=== PATIENT | male | born 1970 | race Caucasian/White ===

== ENCOUNTER 2018-08-11 12:57 | Observation (INO) ==
[2018-08-11 15:56] LABS: Basophils # 0.1 10*3/uL (0.0-0.2); Basophils % 0.5 % (0.0-0.8); Eosinophils # 0.3 10*3/uL (0.0-0.87); Eosinophils % 2.7 % (0.00-10.9); Hematocrit 46.7 VOL% (42.0-52.0); Hemoglobin 15.4 GM/DL (14.0-18.0); Immature Granulocytes % 0.7 %; Immature Granulocytes Absolute 0.09 #; Lymphocytes # 2.5 10*3/uL (1.4-4.0); Lymphocytes % 20.6 % (21.2-54.2); Mean Corpuscular Hemoglobin 32 PG (27-34); Mean Corpuscular Volume 95.7 FL (87-102); Mean Platelet Volume 11.8 FL (9.6-12.0); Monocytes # 1.1 10*3/uL (0.11-0.8); Monocytes % 8.8 % (1.7-12.7); Neutrophils # 8.1 10*3/uL (1.4-7.4); Neutrophils % 66.7 % (38.7-73.9); Platelet Count 239 T/CUMM (130-400); Red Blood Count 4.88 MC/CUMM (3.8-5.5); Red Cell Distribution Width 13.5 % (9.3-17.3); White Blood Count 12.1 T/CUMM (4-12)
[2018-08-11 16:10] LABS: PT Patient Result 10.6 SECS; Partial Thromboplastin Time 31.7 SECS (0-40)
[2018-08-11 16:11] LABS: Alanine Aminotransferase 36 U/L (16-61); Albumin 3.9 G/DL (3.4-5.0); Alkaline Phosphatase 93 U/L (45-117); Aspartate Amino Transferase 29 U/L (0-37); Bilirubin,Total < 0.39 MG/DL (0.2-1.0); Blood Urea Nitrogen 17 MG/DL (7-18); CKMB % 1.7 %; Calcium 8.8 MG/DL (8.5-10.1); Glucose 88 MG/DL (74-106); Potassium 3.8 MMOL/L (3.5-5.1); Sodium 136 MMOL/L (136-145); Total Protein 8.2 G/DL (6.4-8.3); Troponin I < 0.015 NG/ML (0.00-0.045)
[2018-08-11] MEDS ORDERED: ONDANSETRON 4 MG/2 ML VIAL IV PRN (18:55)
[2018-08-11] MEDS ORDERED: MORPHINE 4 MG/1 ML VIAL IV PRN (18:55)
[2018-08-11] MEDS ORDERED: ACETAMINOPHEN 325 MG TABLET PO PRN (18:55)
[2018-08-11] MEDS ORDERED: DOCUSATE SODIUM 100 MG CAPSULE PO PRN (18:55)
[2018-08-11] MEDS ORDERED: ZALEPLON 5 MG CAPSULE PO PRN (18:55)
[2018-08-11 20:23] LABS: CKMB % 1.8 %; Troponin I < 0.015 NG/ML (0.00-0.045)
[2018-08-11] MEDS ORDERED: ENOXAPARIN 40 MG/0.4 ML SYRINGE SUBCUT SCH (21:00)
[2018-08-11] MEDS: CARVEDILOL 3.125 MG TABLET PO SCH (22:14)
[2018-08-12] MEDS ORDERED: PNEUMOCOCCAL VACCINE (13 VALENT) 0.5 ML SYRINGE IM ONE (00:07)
[2018-08-12 03:24] LABS: Apearance,Urine CLEAR (Clear); Bilirubin,Urine Negative (Negative); Blood, Urine Negative (Negative); Glucose,Urine (UA) Negative (Negative); Ketones,Urine Negative (Negative); Mucus,Urine Occasional /LPF (Occasional); Nitrite,Urine Negative (Negative); Protein,Urine Negative; RBC,Urine <1 /HPF (0-4); Urine Color Yellow (Yellow); Urine Specific Gravity > 1.060 (1.001-1.035); Urine Urobilinogen < 2.0 EU/DL (0.2-1.0); WBC,Urine 2 /HPF (0-6)
[2018-08-12 03:47] LABS: Basophils # 0.1 10*3/uL (0.0-0.2); Basophils % 0.4 % (0.0-0.8); Eosinophils # 0.5 10*3/uL (0.0-0.87); Eosinophils % 3.7 % (0.00-10.9); Hematocrit 44.2 VOL% (42.0-52.0); Hemoglobin 14.8 GM/DL (14.0-18.0); Immature Granulocytes Absolute 0.13 #; Lymphocytes # 3.6 10*3/uL (1.4-4.0); Lymphocytes % 26.9 % (21.2-54.2); Mean Corpuscular HGB Conc 33.5 GM/DL (32-36); Mean Corpuscular Hemoglobin 32 PG (27-34); Mean Corpuscular Volume 94.8 FL (87-102); Mean Platelet Volume 12.8 FL (9.6-12.0); Monocytes # 1.6 10*3/uL (0.11-0.8); Monocytes % 11.7 % (1.7-12.7); Neutrophils # 7.6 10*3/uL (1.4-7.4); Neutrophils % 56.3 % (38.7-73.9); Platelet Count 228 T/CUMM (130-400); Red Blood Count 4.66 MC/CUMM (3.8-5.5); Red Cell Distribution Width 13.5 % (9.3-17.3); White Blood Count 13.5 T/CUMM (4-12)
[2018-08-12 04:14] LABS: Troponin I < 0.015 NG/ML (0.00-0.045)
[2018-08-12 04:19] LABS: Calcium 8.3 MG/DL (8.5-10.1); Osmolality,Calculated 279.5 MOS/KG (273-304); Potassium 3.4 MMOL/L (3.5-5.1); Thyroid Stimulating Hormone 2.03 uIU/ml (0.358-3.74)
[2018-08-12 04:29] LABS: Risk Ratio 6.03; VLDL CHOLESTEROL 81.8 MG/DL
[2018-08-12] MEDS ORDERED: ASPIRIN EC 325 MG TABLET PO SCH (09:00)
[2018-08-12] MEDS ORDERED: buPROPion SR 150 MG TABLET PO SCH (09:00)
[2018-08-12] MEDS ORDERED: NICOTINE 21 MG/24 HR PATCH TRANSDERM SCH (09:00)
[2018-08-12] MEDS: CARVEDILOL 3.125 MG TABLET PO SCH (09:38)
[2018-08-12 12:29] VITALS: BP 122/86
[2018-08-12] MEDS ORDERED: ALBUTEROL/IPRATROPIUM 3 ML NEB RESP TX SCH (13:00)
== END 2018-08-12 15:04 | disposition home or self-care (01) ==
LOC: N.ED 12:57 → N.TELES 12:57
PROVIDERS: ADMIT Hospitalist; ATTEND Hospitalist

== ENCOUNTER 2021-05-29 16:00 | Inpatient (IN) ==
[2021-05-29] MEDS ORDERED: SODIUM CHLORIDE 0.9% 1,000 ML IV STA (18:49)
[2021-05-29] MEDS ORDERED: ONDANSETRON 4 MG/2 ML VIAL IV ONE (18:49)
[2021-05-29 19:54] LABS: Basophils % 0.4 % (0.0-0.8); Eosinophils # 0.1 10*3/uL (0.0-0.87); Eosinophils % 1.3 % (0.00-10.9); Hemoglobin 16.5 GM/DL (14.0-18.0); Immature Granulocytes % 0.6 %; Immature Granulocytes Absolute 0.05 #; Lymphocytes # 1.3 10*3/uL (1.4-4.0); Lymphocytes % 16.6 % (21.2-54.2); Mean Corpuscular HGB Conc 33.7 GM/DL (32-36); Mean Corpuscular Volume 92.8 FL (87-102); Mean Platelet Volume 12.3 FL (9.6-12.0); Monocytes % 10.1 % (1.7-12.7); Platelet Count 188 T/CUMM (130-400); Red Blood Count 5.28 MC/CUMM (3.8-5.5); Red Cell Distribution Width 14.2 % (9.3-17.3); White Blood Count 7.7 T/CUMM (4-12)
[2021-05-29 20:23] LABS: Albumin 3.2 G/DL (3.4-5.0); Bilirubin,Total 0.9 MG/DL (0.20-1.00); Calcium 8.3 MG/DL (8.5-10.1); Osmolality,Calculated 263.7 MOS/KG (273-304); Potassium 3.2 MMOL/L (3.5-5.1); Total Protein 7.7 G/DL (6.4-8.2)
[2021-05-29 21:26] LABS: Hepatitis B Core IgM Quant 0.11 Index; Hepatitis B Surface Ag Quant < 0.10 Index; Hepatitis B Surface Ag Result Non-Reactive (NonReactive); Hepatitis C Virus Ab Quant 0.13 Index; Hepatitis C Virus Ab Result Non-Reactive (NonReactive)
[2021-05-29] MEDS ORDERED: POTASSIUM CHLORIDE 20 MEQ/15 ML UDCUP PO ONE (22:18)
[2021-05-29] MEDS ORDERED: POTASSIUM BICARB EFFERVESCENT 20 MEQ TAB.EFF PO ONE (22:30)
[2021-05-29] MEDS ORDERED: DEXTROSE 50% 25 GM/50 ML VIAL IV PRN (23:11)
[2021-05-29] MEDS ORDERED: ONDANSETRON 4 MG/2 ML VIAL IV PRN (23:11)
[2021-05-29] MEDS ORDERED: GLUCAGON 1 MG VIAL IM PRN (23:11)
[2021-05-30] MEDS ORDERED: LORazepam 2 MG/1 ML VIAL IV PRN (00:47)
[2021-05-30] MEDS ORDERED: MAGNESIUM SULF RIDER 2 GM/50 ML PREMIX IV PRN (00:48)
[2021-05-30] MEDS ORDERED: MAGNESIUM SULF RIDER 4 GM/100 ML PREMIX IV PRN (00:48)
[2021-05-30] MEDS ORDERED: POTASSIUM CHLORIDE 20 MEQ TABLET PO PRN (00:48)
[2021-05-30] MEDS ORDERED: PANTOPRAZOLE 40 MG VIAL IV ONE (01:30)
[2021-05-30] MEDS: SODIUM CHLORIDE 0.9% 1,000 ML IV SCH ×2 (02:08→09:40)
[2021-05-30] MEDS ORDERED: NICOTINE 21 MG/24 HR PATCH TRANSDERM PRN (02:38)
[2021-05-30 06:21] LABS: Basophils % 0.4 % (0.0-0.8); Eosinophils # 0.1 10*3/uL (0.0-0.87); Eosinophils % 1.7 % (0.00-10.9); Hematocrit 46.2 VOL% (42.0-52.0); Hemoglobin 15.2 GM/DL (14.0-18.0); Immature Granulocytes % 0.7 %; Immature Granulocytes Absolute 0.05 #; Lymphocytes # 1.3 10*3/uL (1.4-4.0); Lymphocytes % 17.9 % (21.2-54.2); Mean Corpuscular HGB Conc 32.9 GM/DL (32-36); Mean Corpuscular Volume 92.8 FL (87-102); Mean Platelet Volume 12.3 FL (9.6-12.0); Monocytes % 15.1 % (1.7-12.7); Neutrophils % 64.2 % (38.7-73.9); Platelet Count 169 T/CUMM (130-400); Red Blood Count 4.98 MC/CUMM (3.8-5.5); Red Cell Distribution Width 14.4 % (9.3-17.3); White Blood Count 7.5 T/CUMM (4-12)
[2021-05-30 07:00] LABS: Albumin 2.6 G/DL (3.4-5.0); Bilirubin,Total 1.6 MG/DL (0.20-1.00); Calcium 7.9 MG/DL (8.5-10.1); Osmolality,Calculated 267.2 MOS/KG (273-304); Potassium 3.3 MMOL/L (3.5-5.1); Total Protein 6.7 G/DL (6.4-8.2)
[2021-05-30 07:05] LABS: Eosinophils 1 % (0-10); Lymphocytes 12 % (20-55); Platelet Estimate Normal; Segmented Neutrophils 68 % (50-85); Total Cells Counted 100
[2021-05-30 12:11] VITALS: BP 117/72
[2021-05-31] MEDS ORDERED: POTASSIUM CHLORIDE 20 MEQ TABLET PO SCH (09:00)
== END 2021-05-30 14:42 | disposition home or self-care (01) | DRG 442 ==
LOC: N.ED 16:00 → N.EDINP 23:10 → SUATTDRO 23:10 → N.TELES 23:52
PROVIDERS: ADMIT Hospitalist; ATTEND Internal Medicine Geriatric Medicine

== ENCOUNTER 2021-06-03 07:54 | Inpatient (IN) ==
[2021-06-03] MEDS ORDERED: ONDANSETRON 4 MG/2 ML VIAL IV STA (08:21)
[2021-06-03] MEDS ORDERED: SODIUM CHLORIDE 0.9% 1,000 ML IV STA (08:21)
[2021-06-03 08:29] LABS: Basophils % 0.6 % (0.0-0.8); Eosinophils # 0.1 10*3/uL (0.0-0.87); Eosinophils % 1.8 % (0.00-10.9); Hematocrit 47.2 VOL% (42.0-52.0); Hemoglobin 16.2 GM/DL (14.0-18.0); Immature Granulocytes % 1.1 %; Immature Granulocytes Absolute 0.08 #; Lymphocytes # 1.7 10*3/uL (1.4-4.0); Lymphocytes % 23.3 % (21.2-54.2); Mean Corpuscular HGB Conc 34.3 GM/DL (32-36); Mean Corpuscular Volume 91.8 FL (87-102); Mean Platelet Volume 12.5 FL (9.6-12.0); Monocytes % 12.3 % (1.7-12.7); Neutrophils % 60.9 % (38.7-73.9); Platelet Count 198 T/CUMM (130-400); Red Blood Count 5.14 MC/CUMM (3.8-5.5); White Blood Count 7.3 T/CUMM (4-12)
[2021-06-03 08:37] LABS: INR 1.4; PT Patient Result 14.9 SECS (10.5-12.0); Partial Thromboplastin Time 29.4 SECS (23.9-33.8)
[2021-06-03 08:49] LABS: Band Neutrophils 1 % (0-10); Lymphocytes 31 % (20-55); Platelet Estimate Adequate; Segmented Neutrophils 57 % (50-85); Total Cells Counted 100
[2021-06-03 09:10] LABS: Albumin 2.4 G/DL (3.4-5.0); Bilirubin,Total 7.1 MG/DL (0.20-1.00); Osmolality,Calculated 267.2 MOS/KG (273-304); Potassium 3.5 MMOL/L (3.5-5.1); Total Protein 6.9 G/DL (6.4-8.2)
[2021-06-03] MEDS ORDERED: GLUCAGON 1 MG VIAL IM PRN (11:40)
[2021-06-03] MEDS ORDERED: DEXTROSE 50% 25 GM/50 ML VIAL IV PRN (11:40)
[2021-06-03] MEDS ORDERED: hydrALAZINE 20 MG/1 ML VIAL IV PRN (11:40)
[2021-06-03] MEDS ORDERED: ONDANSETRON 4 MG/2 ML VIAL IV PRN (11:40)
[2021-06-03 12:03] LABS: Hepatitis B Core IgM Quant 0.09 Index; Hepatitis B Surface Ag Quant < 0.10 Index; Hepatitis B Surface Ag Result Non-Reactive (NonReactive); Hepatitis C Virus Ab Quant 0.14 Index; Hepatitis C Virus Ab Result Non-Reactive (NonReactive)
[2021-06-03] MEDS: PANTOPRAZOLE 40 MG VIAL IV SCH (14:42)
[2021-06-03] MEDS: SODIUM CHLORIDE 0.9% 1,000 ML IV SCH (18:48)
[2021-06-03] MEDS: NICOTINE 21 MG/24 HR PATCH TRANSDERM SCH (18:48)
[2021-06-03 22:57] LABS: Blood, Urine Small mg/dL (Negative); Glucose,Urine (UA) Negative (Negative); Ketones,Urine Negative (Negative); Mucus,Urine Occasional /LPF (Occasional); Nitrite,Urine Negative (Negative); Protein,Urine Negative; RBC,Urine <1 /HPF (0-4); Urine Appearance CLEAR (Clear); Urine Color Amber (Yellow); Urine Specific Gravity 1.018 (1.001-1.035)
[2021-06-03 22:58] LABS: Bilirubin,Urine Moderate mg/dL (Negative)
[2021-06-03 23:27] LABS: Barbiturates Screen,Urine Negative (Negative); Benzodiazepines Screen,Urine Negative (Negative); Cannabinoid Screen,Urine Negative (Negative); Opiate Screen,Urine Negative (Negative); Phencyclidine Screen,Urine Negative (Negative)
[2021-06-04 04:45] LABS: Basophils % 0.3 % (0.0-0.8); Eosinophils # 0.1 10*3/uL (0.0-0.87); Hematocrit 44.8 VOL% (42.0-52.0); Hemoglobin 14.9 GM/DL (14.0-18.0); Immature Granulocytes % 1.1 %; Immature Granulocytes Absolute 0.09 #; Lymphocytes % 25.1 % (21.2-54.2); Mean Corpuscular HGB Conc 33.3 GM/DL (32-36); Mean Corpuscular Volume 92.9 FL (87-102); Mean Platelet Volume 11.7 FL (9.6-12.0); Monocytes % 15.2 % (1.7-12.7); Neutrophils % 57.3 % (38.7-73.9); Platelet Count 235 T/CUMM (130-400); Red Blood Count 4.82 MC/CUMM (3.8-5.5); Red Cell Distribution Width 15.3 % (9.3-17.3); White Blood Count 7.9 T/CUMM (4-12)
[2021-06-04] MEDS: SODIUM CHLORIDE 0.9% 1,000 ML IV SCH ×3 (04:57→21:20)
[2021-06-04 05:19] LABS: Lymphocytes 24 % (20-55); Platelet Estimate Adequate; Segmented Neutrophils 63 % (50-85); Total Cells Counted 100
[2021-06-04 05:29] LABS: Albumin 2.2 G/DL (3.4-5.0); Bilirubin,Total 7.7 MG/DL (0.20-1.00); Calcium 7.5 MG/DL (8.5-10.1); Osmolality,Calculated 267.1 MOS/KG (273-304); Potassium 3.7 MMOL/L (3.5-5.1); Total Protein 6.4 G/DL (6.4-8.2)
[2021-06-04] MEDS ORDERED: MAGNESIUM SULF RIDER 2 GM/50 ML PREMIX IV ONE (08:07)
[2021-06-04] MEDS ORDERED: NICOTINE 21 MG/24 HR PATCH TRANSDERM SCH (09:00)
[2021-06-04] MEDS: NICOTINE 21 MG/24 HR PATCH TRANSDERM SCH (09:09)
[2021-06-04] MEDS: PANTOPRAZOLE 40 MG VIAL IV SCH (09:09)
[2021-06-04 13:31] LABS: Hepatitis B Surface Ag Quant < 0.10 Index; Hepatitis B Surface Ag Result Non-Reactive (NonReactive)
[2021-06-04] MEDS ORDERED: IBUPROFEN 800 MG TABLET PO ONE (17:18)
[2021-06-05 06:18] LABS: Basophils % 0.6 % (0.0-0.8); Eosinophils # 0.2 10*3/uL (0.0-0.87); Eosinophils % 2.3 % (0.00-10.9); Hematocrit 45.6 VOL% (42.0-52.0); Hemoglobin 15.1 GM/DL (14.0-18.0); Immature Granulocytes % 1.3 %; Immature Granulocytes Absolute 0.09 #; Lymphocytes # 2.1 10*3/uL (1.4-4.0); Lymphocytes % 30.1 % (21.2-54.2); Mean Corpuscular HGB Conc 33.1 GM/DL (32-36); Mean Corpuscular Volume 93.1 FL (87-102); Mean Platelet Volume 11.9 FL (9.6-12.0); Monocytes % 16.4 % (1.7-12.7); Neutrophils % 49.3 % (38.7-73.9); Platelet Count 231 T/CUMM (130-400); Red Cell Distribution Width 15.8 % (9.3-17.3)
[2021-06-05 06:45] LABS: Albumin 2.3 G/DL (3.4-5.0); Bilirubin,Total 8.8 MG/DL (0.20-1.00); Calcium 7.8 MG/DL (8.5-10.1); Potassium 3.6 MMOL/L (3.5-5.1); Total Protein 6.4 G/DL (6.4-8.2)
[2021-06-05] MEDS: SODIUM CHLORIDE 0.9% 1,000 ML IV SCH ×2 (07:50→18:00)
[2021-06-05] MEDS: PANTOPRAZOLE 40 MG TABLET PO SCH (08:34)
[2021-06-05] MEDS: NICOTINE 21 MG/24 HR PATCH TRANSDERM SCH (08:37)
[2021-06-05 09:58] LABS: Eosinophils 2 % (0-10); Lymphocytes 13 % (20-55); Segmented Neutrophils 62 % (50-85); Total Cells Counted 100
[2021-06-05 09:59] LABS: Platelet Estimate Normal; Target Cells 1+
[2021-06-06] MEDS: SODIUM CHLORIDE 0.9% 1,000 ML IV SCH ×2 (04:14→16:57)
[2021-06-06 07:17] LABS: Basophils # 0.1 10*3/uL (0.0-0.2); Basophils % 0.6 % (0.0-0.8); Eosinophils # 0.2 10*3/uL (0.0-0.87); Eosinophils % 1.9 % (0.00-10.9); Hematocrit 42.9 VOL% (42.0-52.0); Hemoglobin 14.3 GM/DL (14.0-18.0); Immature Granulocytes % 0.8 %; Immature Granulocytes Absolute 0.08 #; Lymphocytes # 3.4 10*3/uL (1.4-4.0); Mean Corpuscular HGB Conc 33.3 GM/DL (32-36); Mean Corpuscular Volume 92.9 FL (87-102); Mean Platelet Volume 11.9 FL (9.6-12.0); Monocytes % 12.8 % (1.7-12.7); Neutrophils % 47.9 % (38.7-73.9); Platelet Count 253 T/CUMM (130-400); Red Blood Count 4.62 MC/CUMM (3.8-5.5); Red Cell Distribution Width 15.9 % (9.3-17.3); White Blood Count 9.6 T/CUMM (4-12)
[2021-06-06 07:47] LABS: Albumin 2.1 G/DL (3.4-5.0); Bilirubin,Direct 7.37 MG/DL (0.0-0.20); Bilirubin,Total 8.8 MG/DL (0.20-1.00); Calcium 7.7 MG/DL (8.5-10.1); Osmolality,Calculated 266.1 MOS/KG (273-304); Potassium 3.8 MMOL/L (3.5-5.1); Total Protein 6.3 G/DL (6.4-8.2)
[2021-06-06] MEDS ORDERED: MAGNESIUM SULF RIDER 2 GM/50 ML PREMIX IV ONE (08:35)
[2021-06-06] MEDS: PANTOPRAZOLE 40 MG TABLET PO SCH (09:01)
[2021-06-06] MEDS: NICOTINE 21 MG/24 HR PATCH TRANSDERM SCH (09:01)
[2021-06-06 11:27] LABS: Band Neutrophils 2 % (0-10); Eosinophils 2 % (0-10); Lymphocytes 11 % (20-55); Segmented Neutrophils 67 % (50-85); Total Cells Counted 100
[2021-06-06 11:28] LABS: Platelet Estimate Normal
[2021-06-07] MEDS: SODIUM CHLORIDE 0.9% 1,000 ML IV SCH ×3 (01:10→09:15)
[2021-06-07 06:25] LABS: Basophils # 0.1 10*3/uL (0.0-0.2); Basophils % 0.5 % (0.0-0.8); Eosinophils # 0.2 10*3/uL (0.0-0.87); Eosinophils % 1.8 % (0.00-10.9); Hematocrit 43.1 VOL% (42.0-52.0); Hemoglobin 14.3 GM/DL (14.0-18.0); Immature Granulocytes % 0.9 %; Immature Granulocytes Absolute 0.09 #; Lymphocytes # 3.9 10*3/uL (1.4-4.0); Lymphocytes % 40.5 % (21.2-54.2); Mean Corpuscular HGB Conc 33.2 GM/DL (32-36); Mean Corpuscular Volume 92.9 FL (87-102); Mean Platelet Volume 12.5 FL (9.6-12.0); Monocytes % 13.5 % (1.7-12.7); Neutrophils % 42.8 % (38.7-73.9); Platelet Count 273 T/CUMM (130-400); Red Blood Count 4.64 MC/CUMM (3.8-5.5); Red Cell Distribution Width 16.2 % (9.3-17.3); White Blood Count 9.6 T/CUMM (4-12)
[2021-06-07 06:54] LABS: Lymphocytes 22 % (20-55); Platelet Estimate Normal; Segmented Neutrophils 52 % (50-85); Total Cells Counted 100
[2021-06-07 06:56] LABS: Albumin 2.2 G/DL (3.4-5.0); Osmolality,Calculated 270.8 MOS/KG (273-304); Potassium 3.6 MMOL/L (3.5-5.1); Total Protein 6.4 G/DL (6.4-8.2)
[2021-06-07] MEDS: NICOTINE 21 MG/24 HR PATCH TRANSDERM SCH (09:14)
[2021-06-07] MEDS: PANTOPRAZOLE 40 MG TABLET PO SCH (09:14)
[2021-06-07 11:18] VITALS: BP 126/77
[2021-06-10 12:56] LABS: Alpha-1-Antitrypsin, Serum 163 mg/dL (100 - 190)
== END 2021-06-07 15:27 | disposition home or self-care (01) | DRG 442 ==
LOC: N.EDINP 07:54 → N.ED 07:54 → SUATTDRO 11:40 → N.TELEN 14:49 → SUATTDRO 06-04 08:54
PROVIDERS: ADMIT Internal Medicine; ATTEND Internal Medicine